=== PATIENT | male | born 1980 | race Caucasian/White ===

== ENCOUNTER 2017-06-01 13:43 | Emergency (ER) | payer SELFPAY ==
[~2017-06-01] VITALS: Ht 177.8 cm; Wt 86.2 kg
[2017-06-01 14:05] VITALS: BP 143/99
[2017-06-01] MEDS ORDERED: CEPHALEXIN500 M1 PO (15:47)
== END 2017-06-01 16:17 | disposition home or self-care (01) | DRG 605 ==
LOC: ED 13:43
PROC: 0HQGXZZ Repair Left Hand Skin, External Approach (ICD-10-PCS; principal; 2017-06-01)
DX: S61.012A Laceration without foreign body of left thumb without damage to nail, initial encounter (principal); W26.0XXA Contact with knife, initial encounter; Y93.G3 Activity, cooking and baking; Y92.009 Unspecified place in unspecified non-institutional (private) residence as the place of occurrence of the external cause